=== PATIENT | female | born 1990 | race Caucasian/White ===

== ENCOUNTER 2016-08-02 20:21 | Emergency (ER) | payer OTHER | END 2016-08-02 21:10 | disposition left against medical advice (07) | LOC: ER1 20:21 | DX: Z53.21 Procedure and treatment not carried out due to patient leaving prior to being seen by health care provider (principal) ==

== ENCOUNTER 2017-01-30 11:20 | Emergency (ER) | payer SELFPAY | END 2017-01-30 13:25 | disposition home or self-care (01) | LOC: ER1 11:20 | DX: F41.0 Panic disorder [episodic paroxysmal anxiety] (principal); Z79.899 Other long term (current) drug therapy | CPT/HCPCS: 36415; 82962; 93005; 96374; 96375; 99283; J2060; J2405 ==